=== PATIENT | male | born 1990 | race African-American/Black ===

== ENCOUNTER 2022-06-27 02:04 | Day surgery (SDC) | payer OTHER, SELFPAY ==
[2022-06-25 11:52] VITALS: BMI 33.8
--- NOTE | 2022-06-25 11:58 | PC.NURSE ---
Report to the Outpatient Waiting Room, entrance under the green pavilion located off [facility], at time 0600 on date 06/27/22. OR Time: 0730. Time changes happen often and if your time is changed the preop area will call you the afternoon before. - You and your visitor will be asked to self-screen and do not enter if you have any COVID symptoms. - Only one visitor and NO children visitors are allowed at this time. - The patient visitor is requested to leave or wait in car when not with patient due to restrictions. - A mask is required within the hospital. Patients may have clear liquids (water, carbonated beverages, clear teas, apple juice) until 3 hours prior to surgery with a maximum of 20 ounces. - No food from midnight until time of surgery Take the following medications with a SIP of water the morning of surgery: N/A Medications to discontinue per physician: N/A Date to take last dose: N/A Please no make-up, nail kiswahili, hairspray, perfume, deodorant, or body powder the day of surgery. No jewelry (including any body piercings) or valuables the day of surgery, leave them at home. Please take a shower or bath the night before, or the morning of, surgery with an antibacterial soap. Wear comfortable, loose fitting clothing. - Jewelry must be removed prior to entering the operating room. Rings and piercings that are not removed may be cut off. - The hospital will not accept responsibility for valuables. - Please leave all valuables, including medications, at home the day of surgery. If you are going home after surgery, a licensed truck driver heavy must drive you home. - NO public transportation without another adult. - We recommend that an adult stay with you for 24 hours following discharge. - We also recommend that you do not drive, make important decision, drink alcoholic beverages, or take any drugs that were not prescribed by your health care provider for at least 24 hours after your discharge time. Follow any additional instructions given to you from your surgeon. If you or anyone in your household have experienced Covid symptoms in the past week, please notify your surgeon or the nurse liaison at the phone number below for possible testing. Telephone instructions given to PT - MINO WEBB and asked if any additional questions and then verbalized understanding. Patient advised to call surgeon office or pre surgery nurse liaison [phone] if any additional questions.
--- NOTE | 2022-06-26 14:09 | WPDANESEPPF ---
Anes - Initial Pre Proc Eval Procedure: Operation Date: 06/27/22 08:30 Proposed Procedures p Exploration Digital Nerve Injury, Repair as Indicated Right Ring Finger - Elroy Renee MD Date/Time: 06/26/22 14:09 Surgeon: Elroy Renee MD Pre Op Diagnosis: crushed laceration right ring finger Patient Data Age: 32 Gender: M Height: 1.78 m Weight: 107 kg Allergies Allergy/AdvReac Type Severity Reaction Status Date / Time No Known Allergies Allergy Verified 06/27/22 06:03 Home Medications Medication Instructions Recorded Confirmed Type No Home Medications 06/25/22 06/27/22 History Patient hx anesthesia problems: none Family hx anesthesia problems: none Results Review: All pre-operative results and documents have been reviewed as part of the pre-operative evaluation. [facility] Past Medical History Medical History (Updated 06/26/22 @ 14:10 by Vazquez Irwin MD) Obesity Social History Social History Smoking status: Never smoker Alcohol intake: never Substance use: never Substance use type: does not use Living arrangements: with family Spiritual care concerns: No Anes - Eval Final PreProcedure Day of Procedure 06/26/22 14:09 Patient weight: obese Heart: regular rate and rhythm Lungs: clear to auscultation and normal air movement Airway: Mallampati scale class II Neurological: alert and oriented Last oral intake: >/= 8 hours ASA classification: II Emergent: no Anesthetic plan: proceed Anesthesia type and monitoring: general LMA Results Review: All pre-operative results and documents have been reviewed as part of the pre-operative evaluation. Informed Consent: The patient's anesthetic plan and its attendant risks and benefits were discussed with the patient/family/POA. Questions were solicited and answers provided to the satisfaction of the patient/family/POA.
[2022-06-27] VITALS (7 sets, daily range): BP systolic 115–135; BP diastolic 77–89; PULSE 63–85; RESP 16–20; TEMP 36.3–36.4; O2SAT 95–100
[2022-06-27] MEDS: ACETAMINOPHEN 500 MG TABLET 1000 MG PO (06:20)
[2022-06-27] MEDS: LACTATED RINGERS 1,000 ML 30 ML IV CONT (06:21)
--- NOTE | 2022-06-27 07:13 | WPDHPUPDATE1 ---
History and Physical Update Update Date/Time: 06/27/22 07:13 History and Physical has been reviewed, including an updated exam of the patient. There are NO changes in the patient's condition. Risks, benefits, and alternatives have been discussed and questions answered. Patient agrees to proceed with procedure.
--- NOTE | 2022-06-27 09:13 | SUR.PREOP ---
Resting without complaint. Denies need to go to bathroom.
[2022-06-27] MEDS: ceFAZolin 2 GM/D5W 50 ML 2 GM/50 ML BAG IVPB (09:49)
[2022-06-27] MEDS: LIDO 1%/EPINEPHRINE 1:100,000 10 ML VIAL 7 ML INFILTRATE (09:51)
[2022-06-27] MEDS: BACITRACIN OINTMENT 15 GM TUBE 1 APPLIC TOPICAL (10:37)
--- NOTE | 2022-06-27 11:01 | P.OP_ITS ---
Procedure Note - Detailed Date of Procedure 06/27/22 Pre-op Diagnosis crushed laceration right ring finger Post-op Diagnosis Other (Crush open fracture laceration to the left ulnar ring finger without visible or reparable digital nerve injury) Procedure Performed Exploration of ulnar digital nerve to the left ring finger Surgeon Elroy Renee MD [employer] [facility] Anesthesia General Findings Apparent intact digital nerve branches at least 1 cm beyond the skin laceration Description of Procedure The injured left ring finger was marked with the patient in the holding area. He reports continuance dense numbness from the laceration to the tip of the finger on the ulnar side. I tested for Tinel's sign today and did not find any. We are proceeding with the exploration due to the configuration of this curving laceration and the patient's complaint of numbness. The site was marked and the patient was taken to the operating room where he was placed supine on the operating table. The plan had been for sedation anesthesia and local. The patient however was nauseated and vomited 100 cc of bile. The lease broker determined that endotracheal intubation would be safer and this was performed. The right upper extremity was prepped and draped in usual fashion. The digit with anesthetized with 1% lidocaine with epinephrine as intrathecal block. A green tourniquet was placed to the base of the finger. An ulnar midlateral inci hector was made to expose unanswered nerve this was carefully elevated the nerve identified and followed distally. The incision was continued onto the distal phalanx and the skin flap elevated there as well. The healed transverse wound was not reopened. I was able to visualize the ulnar digital nerve under 5 diopter loupe magnification and the nerve was carefully dissected distally beneath the skin laceration and slightly more than a cm beyond that. The fatty tissue superficial to the nerve had obviously been crushed and was easily with blunt dissection, but nerve fibers appeared to continue distally. We could see 2 or possibly 3 branches and did not dissect further. The wound was irrigated and the skin closed with a running 5 0 nylon suture. The tourniquet was removed and a bandage applied. The patient had received 2 g Ancef preop. He had received 1000 mg of Tylenol p.o. preop. He is discharged with some ibuprofen 600 mg q.6 hours 8 if needed for pain. Estimated Blood Loss 0 Drains No Packing No Pathology None sent Complications No immediate complications Condition Stable Disposition PACU
[2022-06-27] MEDS: oxyCODONE HCL (*CRX) 5 MG TAB IR PO (12:09)
== END 2022-06-27 12:37 | disposition home or self-care (01) ==
PROVIDERS: Visit Provider Plastic Surgery
PROC: (CPT 64702; principal; 2022-06-27 08:30)
DX: S61.215A Laceration without foreign body of left ring finger without damage to nail, initial encounter (principal); X58.XXXA Exposure to other specified factors, initial encounter; Y99.0 Civilian activity done for income or pay; E66.9 Obesity, unspecified; Z68.31 Body mass index [BMI] 31.0-31.9, adult
CPT/HCPCS: 64702; A9270; J0330; J0690; J1100; J1170; J2250; J2405; J2704; J3010; J7120